=== PATIENT | male | born 1960 | race Caucasian/White ===

== ENCOUNTER 2019-10-05 10:25 | Emergency (ER) | payer OTHER ==
[2019-10-05 11:58] VITALS: BP 142/89
[2019-10-05] MEDS ORDERED: Tetan/Diph/Pertus SYR(Tdap)* 0.5 ML SYR(BOOSTRIX) use SYR contains LATEX IM ONE (12:30)
[2019-10-05] MEDS ORDERED: Lidocaine 1% MPF ** 5 ML VIAL INJ ONE (12:30)
--- NOTE | 2019-10-05 13:45 | UC ---
Laceration HPI - HPI Summary HPI Summary: 59-year-old male presents for a laceration to the palm of his left hand. States just prior to arrival he was using pruning alexx when he accidentally his hand just below his thumb. Bleeding was controlled prior to arrival with direct pressure. Reports full range of motion to the thumb and fingers. Patient is unsure of his last tetanus shot. Denies any numbness or tingling. - History Of Current Complaint Chief Complaint: UCLaceration Stated Complaint: HAND LACERATION Time Seen by Provider: 10/05/19 12:56 Hx Obtained From: Patient Pain Intensity: 2 - Allergies/Home Medications Allergies/Adverse Reactions: Allergies Allergy/AdvReac Type Severity Reaction Status Date / Time No Known Allergies Allergy Verified 08/23/15 15:27 Home Medications: Home Medications Escitalopram * [Lexapro *] 20 mg PO DAILY 10/05/19 [History Confirmed 10/05/19] Glimepiride (NF) 1 tab PO DAILY 10/05/19 [History Confirmed 10/05/19] Lisinopril TAB* [Prinivil TAB 5 MG*] 1 tab PO DAILY 10/05/19 [History Confirmed 10/05/19] Simvastatin [Zocor 5 MG-] 1 tab PO DAILY 10/05/19 [History Confirmed 10/05/19] hydroCHLOROthiazide [Hydrochlorothiazide] 1 tab PO DAILY 10/05/19 [History Confirmed 10/05/19] metFORMIN* [Glucophage 500 MG TAB *] 1 tab PO DAILY 10/05/19 [History Confirmed 10/05/19] PMH/Surg Hx/FS Hx/Imm Hx Endocrine History: Diabetes, Dyslipidemia Cardiovascular History: Hypertension Psychological History: Depression - Surgical History Surgical History: Yes Surgery Procedure, Year, and Place: rightbknee ligament surg eye surgery left eye - Family History Known Family History: Positive: Non-Contributory - Social History Occupation: Retired Lives: Alone Alcohol Use: None Substance Use Type: None Smoking Status (MU): Former Smoker Review of Systems All Other Systems Reviewed And Are Negative: Yes Constitutional: Negative: Fever, Chills Skin: Positive: Other - See HPI Respiratory: Positive: Negative Cardiovascular: Positive: Negative Gastrointestinal: Positive: Negative Genitourinary: Positive: Negative Motor: Negative: Weakness Neurovascular: Negative: Decreased Sensation Musculoskeletal: Negative: Arthralgia, Decreased ROM Neurological: Positive: Negative Is Patient Immunocompromised?: No Physical Exam - Summary Physical Exam Summary: GENERAL APPEARANCE: Well developed, well nourished, alert and cooperative, and appears to be in no acute distress. CARDIAC: Normal S1 and S2. No S3, S4 or murmurs. Rhythm is regular. There is no peripheral edema, cyanosis or pallor. Extremities are warm and well perfused. Capillary refill is less than 2 seconds. Peripheral pulses intact. LUNGS: Clear to auscultation without rales, rhonchi, wheezing or diminished breath sounds. ABDOMEN: Positive bowel sounds. Soft, nondistended, nontender. No guarding or rebound. No masses or hepatosplenomegally. MUSKULOSKELETAL: ROM intact to all extremities. No joint erythema or tenderness. Normal muscular development. Normal gait. EXTREMITIES: Linear laceration that extends through the dermal layer over the thenar eminence of the left hand with bleeding controlled. Circulation and sensation intact distally. SKIN: Skin normal color, texture and turgor. Triage Information Reviewed: Yes Vital Signs: Initial Vital Signs Temp 98 F 10/05/19 11:55 Pulse 95 10/05/19 11:55 Resp 16 10/05/19 11:55 BP 142/89 10/05/19 11:55 Pulse Ox 99 10/05/19 11:55 Vital Signs Reviewed: Yes Images Hands: 1 - Linear laceration that extends through the dermal layers Procedures - Procedure Summary Procedure Summary: Procedure note: Laceration repair left hand Informed consent was obtained before procedure started and the appropriate timeout was taken. The wound was copiously irrigated by the RN prior to repair. Local anesthesia was achieved using 3 ml of lidocaine 1% without epinephrine. The wound was thoroughly explored. No foreign bodies or tendon lacerations were noted. The wound margins were brought into good alignment and 6 interrupted sutures were placed using 4-0 Ethilon. Total length of wound after repair was 2.4 cm. Estimated blood loss was minimal. A dressing was applied to the area by the RN. Anticipatory guidance, as well as standard post-procedure care was discussed with patient. Return precautions are given. The patient tolerated the procedure well without complications. Patient is to follow up in 10-14 days for suture removal and evaluation of the laceration. Laceration Course/Dx - Course/Dx Course Of Treatment: 59-year-old male presents for a laceration to the palm of his left hand. States just prior to arrival he was using pruning alexx when he accidentally his hand just below his thumb. Bleeding was controlled prior to arrival with direct pressure. Reports full range of motion to the thumb and fingers. Patient is unsure of his last tetanus shot. Denies any numbness or tingling. Afebrile. Hypertensive otherwise vital signs stable. Patient had a linear laceration that extended through the dermal layers over the thenar eminence of his left palmar hand with bleeding controlled. He had full range of motion of his thumb and fingers including against resistance. Circulation and sensation were intact. Remainder of exam was unremarkable. The wound was copiously irrigated by the RN prior to wound repair. After obtaining informed consent and performing an appropriate time out 3 wound was thoroughly anesthetized and explored. No foreign bodies are tendon lacerations were noted. The wound was then repaired with a total of 6 interrupted sutures using 4-0 Ethilon. Patient tolerated the procedure well. A dressing was applied by the RN. Patient is to return in 10-14 days for suture removal. Because of the mechanism of injury, potential for contamination, and his underlying history of diabetes we will place him on Augmentin 875 mg twice a day 5 days for infection prophylaxis. Wound care, and anticipatory guidance, and warning symptoms were reviewed with the patient. Verbalizes understanding and agrees with plan of care. - Differential Dx - Laceration/Wound Differental Diagnoses: Foreign Body, Laceration, Tendon Laceration - Diagnosis Provider Diagnosis: Laceration of left hand Discharge ED - Sign-Out/Discharge Documenting (check all that apply): Patient Departure All imaging exams completed and their final reports reviewed: No Studies - Discharge Plan Condition: Stable Disposition: HOME Prescriptions: Amoxicillin/Clavulanate TAB* [Augmentin TAB 875*] 875 mg PO BID #10 tab Patient Education Materials: Care For Your Stitches (ED), Laceration (ED) Referrals: Mustapha Kam MD [Primary Care Provider] - Additional Instructions: Considering the mechanism of injury and your history of diabetes we will start you on an antibiotic to help prevent infection. Start Augmentin 8 and 75 mg 1 tablet twice daily 5 days. Take with food to avoid upset stomach. Leave the dressing that was applied in the clinic in place until tomorrow. Be sure to keep it clean and dry. Starting tomorrow, you may remove the dressing and shower and wash hands as normal. Do not submerge the hand under water to prevent infection. Clean the wound with a mild soap and water at least once a day. Apply some antibiotic ointment and cover with a bandage. This should be changed at least once a day or any time the dressing becomes wet or soiled. Use acetaminophen (Tylenol) or ibuprofen (Advil, Motrin) according to directions as needed for pain. Sutures will need to be removed in 10-14 days. You may return here or with your primary care provider to have this done. We updated your tetanus in the clinic today. Be sure to contact her primary care provider and notify them so that they may update your records. Watch for signs of infection including fever greater than 100.5 F, severe pain not managed with pain medication, redness that spreads, swelling of the hand or pus draining from the wound. Seek immediate medical attention should any of these occur. - Billing Disposition and Condition Condition: STABLE Disposition: Home
== END 2019-10-05 14:08 | disposition home or self-care (01) ==
LOC: UCEAST 10:25
DX: S61.412A Laceration without foreign body of left hand, initial encounter (principal); E11.9 Type 2 diabetes mellitus without complications; E78.5 Hyperlipidemia, unspecified; I10 Essential (primary) hypertension; F32.9 Major depressive disorder, single episode, unspecified; Z79.899 Other long term (current) drug therapy; Z79.84 Long term (current) use of oral hypoglycemic drugs; Z87.891 Personal history of nicotine dependence; X58.XXXA Exposure to other specified factors, initial encounter; Y92.9 Unspecified place or not applicable
CPT/HCPCS: 12001; 90715; 99212; G0463

== ENCOUNTER 2019-10-14 16:11 | Emergency (ER) | payer SELFPAY ==
[2019-10-14 16:36] VITALS: BP 143/84
--- NOTE | 2019-10-14 16:54 | UC ---
HPI Wound/Suture Re-check - HPI Summary HPI Summary: The patient is a 59-year-old male who presents here to see if his sutures can be removed. He had sutures placed on the left palm (thenar eminence). The sutures have been in 8 days. They are not causing him any pain. He denies any swelling or redness. He is right handed. He states that the information on his discharge paperwork was a little confusing because one area it said suture removal in 7 days any other area said 10-14 days. - History Of Current Complaint Chief Complaint: UCSkin Stated Complaint: SUTURE REMOVAL Time Seen by Provider: 10/14/19 16:43 Onset/Duration: Sudden Onset, Lasting Days Severity: Mild Pain Intensity: 0 Pain Scale Used: 0-10 Numeric - Allergies/Home Medications Allergies/Adverse Reactions: Allergies Allergy/AdvReac Type Severity Reaction Status Date / Time No Known Allergies Allergy Verified 10/14/19 16:29 PMH/Surg Hx/FS Hx/Imm Hx Previously Healthy: Yes Endocrine History: Diabetes, Dyslipidemia Cardiovascular History: Hypertension - Surgical History Surgical History: Yes Surgery Procedure, Year, and Place: rightbknee ligament surg eye surgery left eye - Family History Known Family History: Positive: Non-Contributory - Social History Alcohol Use: None Substance Use Type: None Smoking Status (MU): Former Smoker Review of Systems All Other Systems Reviewed And Are Negative: Yes Constitutional: Positive: Negative Skin: Positive: Negative Eyes: Positive: Negative ENT: Positive: Negative Respiratory: Positive: Negative Cardiovascular: Positive: Negative Gastrointestinal: Positive: Negative Genitourinary: Positive: Negative Motor: Positive: Negative Neurovascular: Positive: Negative Musculoskeletal: Positive: Negative Neurological: Positive: Negative Psychological: Positive: Negative Physical Exam Triage Information Reviewed: Yes Appearance: Well-Appearing, No Pain Distress, Well-Nourished Vital Signs: Initial Vital Signs Temp 97.2 F 10/14/19 16:30 Pulse 96 10/14/19 16:30 Resp 15 10/14/19 16:30 BP 143/84 10/14/19 16:30 Pulse Ox 99 10/14/19 16:30 Vital Signs Reviewed: Yes Eyes: Positive: Conjunctiva Clear ENT: Positive: Hearing grossly normal. Negative: Nasal congestion, Nasal drainage, Trismus, Muffled voice, Dental tenderness Dental Exam: Normal Neck: Positive: Supple Respiratory: Positive: Lungs clear, Normal breath sounds, No respiratory distress Cardiovascular: Positive: RRR, No Murmur Musculoskeletal: Positive: ROM Intact, No Edema Neurological: Positive: Alert Psychological Exam: Normal Skin Exam: Other - healing laceration Course/Dx - Diagnosis Provider Diagnosis: Encounter for re-check of laceration wound Discharge ED - Sign-Out/Discharge Documenting (check all that apply): Patient Departure All imaging exams completed and their final reports reviewed: No Studies - Discharge Plan Condition: Stable Disposition: HOME Referrals: Mustapha Kam MD [Primary Care Provider] - Additional Instructions: I suggest you wait another 5 days or so to have the sutures removed - Billing Disposition and Condition Condition: STABLE Disposition: Home
== END 2019-10-14 17:05 | disposition home or self-care (01) ==
LOC: UCEAST 16:11
DX: T14.8XXA Other injury of unspecified body region, initial encounter (principal); I10 Essential (primary) hypertension; X58.XXXA Exposure to other specified factors, initial encounter; Y92.9 Unspecified place or not applicable; Z87.891 Personal history of nicotine dependence
CPT/HCPCS: 99211; G0463